=== PATIENT | female | born 1940 | race Caucasian/White ===

== ENCOUNTER 2020-11-29 10:15 | Day surgery (SDC) | payer MEDICARE, OTHER ==
[~2020-11-29] VITALS: Ht 167.6 cm; Wt 75.4 kg
[2020-11-29 11:19] VITALS: BP 164/71
[2020-11-29] MEDS ORDERED: ATOR40TA PO (11:19)
[2020-11-29] MEDS ORDERED: OMEP-110 PO (11:19)
[2020-11-29] MEDS ORDERED: CELE200C PO (11:19)
[2020-11-29] MEDS ORDERED: MICROZIDE PO (11:19)
[2020-11-29] MEDS ORDERED: OXYB-39 PO (11:19)
[2020-11-29] MEDS ORDERED: ATEN25TA PO (11:19)
[2020-11-29] MEDS ORDERED: METF500T17 PO (11:19)
[2020-11-29] MEDS ORDERED: SODIUM CHLORIDE 0.9% 1,000 ML IV SCH (11:30)
[2020-11-29] MEDS ORDERED: MIDAZOLAM 1 MG/ML, 5ML ONE (12:01)
[2020-11-29] MEDS ORDERED: FENTANYL PF 100 MCG/2ML ONE (12:02)
[2020-11-29] MEDS ORDERED: NALOXONE 1 MG/ML, 2ML ONE (12:02)
[2020-11-29] MEDS ORDERED: FLUMAZENIL 0.1 MG/1 ML, 5ML ONE (12:02)
== END 2020-11-29 13:25 | disposition home or self-care (01) ==
LOC: OUT 10:15
PROVIDERS: ATTEND Specialist
DX: E27.8 Other specified disorders of adrenal gland (principal); C34.92 Malignant neoplasm of unspecified part of left bronchus or lung; C79.51 Secondary malignant neoplasm of bone; J44.9 Chronic obstructive pulmonary disease, unspecified; E78.5 Hyperlipidemia, unspecified; K21.9 Gastro-esophageal reflux disease without esophagitis; Z79.01 Long term (current) use of anticoagulants; Z79.84 Long term (current) use of oral hypoglycemic drugs; Z79.899 Other long term (current) drug therapy; Z87.891 Personal history of nicotine dependence; Z99.81 Dependence on supplemental oxygen; Z98.890 Other specified postprocedural states; Z80.3 Family history of malignant neoplasm of breast
CPT/HCPCS: 49180; 77012; 99156; J2250; J3010; J7030; J2310